=== PATIENT | female | born 1980 | race Caucasian/White ===

== ENCOUNTER → 2020-02-10 11:00 | Outpatient (BNVA) | payer OTHER, SELFPAY | PROVIDERS: Visit Provider Psychiatry & Neurology Psychiatry | DX: Z03.89 Encounter for observation for other suspected diseases and conditions ruled out (principal) | CPT/HCPCS: 80048; 80061; 83036; 85025 ==

== ENCOUNTER → 2020-03-28 10:00 | Outpatient (BNVA) | payer MEDICAID, SELFPAY | PROVIDERS: Visit Provider Counselor Professional | DX: F31.81 Bipolar II disorder (principal) | CPT/HCPCS: 90832 ==

== ENCOUNTER → 2020-04-25 09:05 | Outpatient (BNVA) | payer MEDICAID, SELFPAY | PROVIDERS: Visit Provider Counselor Professional | DX: F31.81 Bipolar II disorder (principal) | CPT/HCPCS: 90834 ==

== ENCOUNTER → 2020-05-30 09:05 | Outpatient (BNVA) | payer MEDICAID, SELFPAY | PROVIDERS: Visit Provider Counselor Professional | DX: F31.81 Bipolar II disorder (principal) | CPT/HCPCS: 90834 ==

== ENCOUNTER → 2020-07-04 09:05 | Outpatient (BNVA) | payer BC, SELFPAY | PROVIDERS: Visit Provider Counselor Professional | DX: F31.81 Bipolar II disorder (principal) | CPT/HCPCS: 90834 ==

== ENCOUNTER → 2020-08-03 07:38 | Outpatient (BNVA) | payer BC, SELFPAY | PROVIDERS: Visit Provider Psychiatry & Neurology Psychiatry | DX: F31.81 Bipolar II disorder (principal) | CPT/HCPCS: 99214 ==

== ENCOUNTER → 2020-08-17 08:06 | Outpatient (BNVA) | payer BC, SELFPAY | PROVIDERS: Visit Provider Counselor Professional | DX: F31.81 Bipolar II disorder (principal) | CPT/HCPCS: 90834 ==

== ENCOUNTER → 2020-08-29 10:30 | Outpatient (BNVA) | payer BC, SELFPAY | PROVIDERS: Visit Provider Psychiatry & Neurology Psychiatry | DX: F31.81 Bipolar II disorder (principal); Z79.899 Other long term (current) drug therapy; Z03.89 Encounter for observation for other suspected diseases and conditions ruled out | CPT/HCPCS: 80053; 80061; 80178; 83036; 84443; 85025 ==

== ENCOUNTER → 2020-09-14 08:52 | Outpatient (BNVA) | payer BC, SELFPAY | PROVIDERS: Visit Provider Counselor Professional | DX: F31.81 Bipolar II disorder (principal) | CPT/HCPCS: 90834 ==

== ENCOUNTER → 2020-10-19 08:57 | Outpatient (BNVA) | payer BC, SELFPAY | PROVIDERS: Visit Provider Counselor Professional | DX: F31.81 Bipolar II disorder (principal) | CPT/HCPCS: 90834 ==

== ENCOUNTER → 2020-10-26 08:16 | Outpatient (BNVA) | payer BC, SELFPAY | PROVIDERS: Visit Provider Psychiatry & Neurology Psychiatry | DX: F31.81 Bipolar II disorder (principal); Z79.899 Other long term (current) drug therapy | CPT/HCPCS: 80048; 80178; 99214 ==

== ENCOUNTER → 2020-11-16 09:03 | Outpatient (BNVA) | payer BC, SELFPAY | PROVIDERS: Visit Provider Counselor Professional | DX: F31.81 Bipolar II disorder (principal) | CPT/HCPCS: 90834 ==

== ENCOUNTER 2020-12-14 09:49 | Outpatient (CLI) | payer BC, SELFPAY ==
--- NOTE | 2020-12-14 10:18 | XR_ITS ---
WS: [id number] LEFT KNEE: 2 VIEW(S) TECHNIQUE: AP and lateral. HISTORY: LEFT KNEE PAIN COMPARISON: None available. No fracture or dislocation. No joint space narrowing or osteophytes. No joint effusion. Soft tissue calcifications are noted over the infrapatellar fat pad and proximal tibia. XR/XR knee LT 1-2V 20475 IMPRESSION: No significant osteoarthritic changes. No bone lesion.
== END 2020-12-14 09:50 | disposition home or self-care (01) ==
PROVIDERS: Visit Provider Nurse Practitioner Family
DX: M25.562 Pain in left knee (principal)
CPT/HCPCS: 73560

== ENCOUNTER → 2020-12-21 08:21 | Outpatient (BNVA) | payer BC, SELFPAY | PROVIDERS: Visit Provider Psychiatry & Neurology Psychiatry | DX: F31.81 Bipolar II disorder (principal) | CPT/HCPCS: 99214 ==

== ENCOUNTER → 2021-02-01 08:01 | Outpatient (BNVA) | payer BC, MEDICAID, SELFPAY | PROVIDERS: Visit Provider Psychiatry & Neurology Psychiatry | DX: F31.81 Bipolar II disorder (principal) | CPT/HCPCS: 99214 ==

== ENCOUNTER → 2021-04-12 08:57 | Outpatient (BNVA) | payer MEDICAID, SELFPAY | PROVIDERS: Visit Provider Psychiatry & Neurology Psychiatry | DX: F31.81 Bipolar II disorder (principal) | CPT/HCPCS: 99214 ==

== ENCOUNTER 2021-04-30 09:33 | Outpatient (CLI) | payer MEDICAID, SELFPAY ==
--- NOTE | 2021-04-30 09:30 | CT_ITS ---
WS: [id number] CT ABDOMEN AND PELVIS WITH CONTRAST HISTORY: UNSPECIFIED ABDOMINAL PAIN, RIGHT upper quadrant pain into back and LEFT groin. TECHNIQUE: Imaging performed of the abdomen and pelvis with IV contrast. Single phase imaging of the abdomen. Coronal and sagittal reformats are submitted. All CT scans at [facility] use at [address] one of these dose optimization techniques: automated exposure control; mA and/or kV adjustment per patient size (includes targeted exams where dose is matched to clinical indication); or iterative re construction. IV CONTRAST: Omnipaque 300; 95 mL IV. Oral contrast: Yes. DLP: 1082.03 mGycm COMPARISON: None available. Lower thorax: Lung bases are clear. Heart is normal size. Small hiatal hernia. Liver/biliary system: Normal size with no intrahepatic dilatation. Gallbladder: Status post cholecystectomy. Pancreas: Normal size pancreas and pancreatic duct. No adjacent inflammation. Spleen: Normal size spleen. No mass or infarct. Adrenal glands: Normal. Right kidney: Normal size kidney. Posterior mid renal cyst measures 2.0 x 2.9 cm. There is a small pa rapelvic cyst also. No obstruction. Left kidney: Normal. Aorta: Normal. Lymphadenopathy: None. Free fluid: None. GI tract: Within the central pelvis there are abnormal loops of GI tract. These abnormal loops of GI tract are inseparable from portion of the small bowel and also the sigmoid colon. I believe this is p robably the cecum which has crossed the midline. The appendix may be part of this soft tissue abnorma lity. The appendix is not identified as a separate structure. There is mild tethering and edema prese nt. There is increased soft tissue which extends to abut the small bowel loops. I favor there is at l east a partial obstruction and the adjacent loop of small bowel contains fecalization of material. Di stal sigmoid demonstrates some mild narrowing which may be a stricture associated with this process. Abdominal wall: Unremarkable abdominal wall. No hernia. Pelvis: Mildly prominent anteverted uterus. Bilateral ovarian follicles. No free fluid. Urinary bladd er is normal. Bones: L4 anterolisthesis by 5 mm. Bilateral L4 pars defects. At least mild foraminal stenosis at L4- 5. CT/CT abdomen pelvis w con* [id number] IMPRESSION: 1. Abnormal cluster and tethering of colon and small bowel in the mid pelvis. I believe the cecum has crossed the midline and is part of this conglomeration. There is increased soft tissue and mild fecal stasis suggesting at least a par tial long-term small bowel obstruction. The appendix is not identified as a sep arate structure and may be part of this process. There is involvement of small bowel, cecum and possibly the distal sigmoid. This could represent a Meckel's d iverticulum or neoplasm or chronic inflammation. Recommend surgical evaluation. 2. Simple RIGHT renal cyst. 3. No ascites or adenopathy.
[2021-04-30] MEDS: iohexol 300 mg/mL 50 mL Btl PO (10:00)
[2021-04-30] MEDS: iohexol 300 mg/mL 100 mL Btl IV (11:10)
== END 2021-04-30 09:34 | disposition home or self-care (01) ==
PROVIDERS: Visit Provider Nurse Practitioner Family
DX: R10.32 Left lower quadrant pain; R10.11 Right upper quadrant pain; N28.1 Cyst of kidney, acquired
CPT/HCPCS: 74177; Q9967

== ENCOUNTER 2021-05-01 09:48 | Emergency (ER) | payer MEDICAID, SELFPAY ==
[2021-05-01] VITALS (16 sets, daily range): BP systolic 97–161; BP diastolic 50–106; PULSE 53–78; RESP 16–18; TEMP 36.8; O2SAT 98–100; BMI 32.9
--- NOTE | 2021-05-01 09:54 | XR_ITS ---
WS: [id number] KUB, AP view, 05/01/2021 Clinical Data: bowel obstruction Comparison: None. Findings: No abnormal intraabdominal masses or calcifications are seen. There is no dilatated small bowel or ev idence of obstruction. There is air in the stomach, small bowel and colon. There are clips in the right upper quadrant from a cholecystectomy. There are phleboliths in the true pelvis. XR/XR KUB portable [id number] Impression: Negative KUB.
--- NOTE | 2021-05-01 10:24 | CT_ITS ---
WS: [id number] CT ABDOMEN PELVIS TECHNIQUE: Contrast-enhanced CT of the abdomen and pelvis with coronal and sagittal reformatted image s. CLINICAL INFORMATION: SBO? COMPARISON: CT 04/30/21 DLP: 1592.[address] scans at [facility] use at least one of these dose optimization techniques: automated e xposure control; mA and/or kV adjustment per patient size (includes targeted exams where dose is matc hed to clinical indication); or iterative reconstruction. FINDINGS: No evidence of high-grade small or large bowel obstruction. Previously described tethering of colon a nd small bowel in the mid pelvis with mobile cecum. Improved induration and inflammatory changes in t his area as compared to previous. No evidence of drainable fluid collection or abscess. Terminal ileu m has a more normal appearance today. Appendix is normal today. Appendix located in the midabdomen an teriorly. No evidence of acute appendicitis. Residual mild induration and enhancement involving the r ight ascending colon suspicious for infectious or inflammatory colitis. Diffuse fatty infiltration liver. Prior cholecystectomy. Lung bases are well aerated. Normal spleen. Normal GE junction. A few sigmoid diverticuli. No evidence of sigmoid diverticulitis. Adrenal glands are normal. Normal renal parenchymal enhancement. No hydronephrosis. Right renal cyst. Normal pancrea s. Lung bases are well aerated. Grade 1 anterolisthesis L4 on L5 with chronic bilateral pars defects. Retroverted uterus. Fluid or endometrial thickening in the endometrial canal. Right ovarian cyst mariano suring 1.[address]/CT abdomen pelvis w con* [id number] IMPRESSION: 1. Improved inflammation involving the cecum in the mid pelvis compared to pre vious. Normal ileocecal valve. Mobile cecum in the mid pelvis is unchanged. 2. Persistent thickening of the right colon with submucosal enhancement suspic ious for infectious or inflammatory colitis. 3. Normal appendix is visualized today. 4. No evidence of high-grade small or large bowel obstruction. Bowel distentio n has improved compared to yesterday. 5. Peripheral enhancing right ovarian cyst measuring 1.9 CM. Retroverted uteru s. 6. Sigmoid diverticulosis. No evidence of sigmoid diverticulitis. 7. Grade 1 anterolisthesis L4 on L5 with chronic bilateral pars defects.
--- NOTE | 2021-05-01 10:25 | W.ED.GENADLT ---
HPI - General Adult General: Chief complaint: Abdominal Pain Stated complaint: POSS BOWEL OBSTRUCTION:SENT BY POLO/ADMIT Time Seen by Provider: 05/01/21 09:54 History of Present Illness: HPI narrative: Patient is a 41-year-old female with no significant past medical history presents the emergency room for complaints of diffuse abdominal pain. Patient tells me 2 days ago he had she underwent a CT evaluation for rectal bleeding and was found to have small bowel obstruction. Patient says that she has been having symptoms for 1 month which acutely worsens since Thursday night. Patient says that this morning she has been able to pass 2 sets of stool. Patient reports some nausea denies vomiting, has not had any decreased p.o. intake. No prior abdominal surgeries. No prior history of cancer, weight loss or symptoms. Onset: chroncially 1 month, acutely 3 days ago Duration:3 days Location:home Severity: moderate Review of Systems Narrative: Constitutional: No fever, no chills. HEENT: No vision changes CV: No chest pain, no palpitations PULM: no cough, no dyspnea. GI: +abdominal pain, +N/-V/-D. : No dysuria MSKEL: No muscle pain SKIN: No new rashes, no lesions. NEURO: No headache, no focal weakness. HEME: No visible bruises PSYCH: Normal mood PFSH ED PFSH: Medical History (Updated 05/01/21 @ 12:07 by Tye Adrian MD) Bipolar 2 disorder Encounter for observation for other suspected diseases and conditions ruled out Other fdc (current) drug therapy Psychiatric care Social History (Updated 02/10/20 @ 10:02 by Yas Alegria LPN) Smoking and tobacco status: current every day smoker cigarettes and e-cigarettes E-Cigarette Details: vaporizer device E-cig/vape details: 5mg Juul last 3 days; been smoking for over 20 years Quit status (tobacco): considering quitting Second hand smoke exposure: Yes Current gender identity: Female Physical Exam Narrative: EXAM NARRATIVE: Head: Atraumatic Eyes: PERRL, conjunctiva without injection ENT: Mucous membrane moist NECK: Supple, ROM intact LUNGS: LCTAB, no crackles/rhonchi CV: RRR ABDOMEN: Soft, +mild focal TTP RUQ and LLQ. NO guarding rebound, guarding, rigidity. No CVA tenderness to percussion. Neg Reis/Neg McBurney's point tenderness, no suprabupic tenderness to palpation. EXTREMITY: Normal ROM SKIN: No rash or erythema NEURO: Awake and alert, no focal motor deficits PSYCH: Normal mood and affect Course Vital Signs: Vital signs: Vital Signs Temperature 98.2 F 05/01/21 10:19 Pulse Rate 67 05/01/21 12:57 Respiratory Rate 16 05/01/21 12:57 Blood Pressure 97/50 05/01/21 12:57 Pulse Oximetry 98 05/01/21 12:57 MDM - General Adult MDM Narrative: Medical decision making narrative: 41-year-old female presenting to the emergency room with complaints of generalized abdominal pain with concern for small bowel obstruction on recent CT scan from 2 days ago. On exam, patient has mild tenderness palpation right upper quadrant with and left lower quadrant. No guarding no rebound tenderness, no Reis sign. Lab work-up and CT abdomen pelvis showed colitis. WBC of 6.4 Patient is afebrile, not immunocompromised. Given GI cocktail with significant improvement in symptoms. Patient is able to tolerate p.o. Will not give antibiotics at this time. Patient is given follow-up with primary care provider for further evaluation of colitis and resolution of symptoms. Rx zofran PRN nausea/vomiting, maalox, and pepcid PRN upset stomach I have given patient a script for augmentin in case her colitis gets worse or if she has vomiting or fever. Disposition: Discharge. Patient counseled regarding diagnostic impression, treatment plan. Patient given ED strict return precautions to return for continuation, worsening, or development of new symptoms. Instructed to f/u w/ PCP regarding symptoms today. Patient verbalized understanding. Lab Data: Labs: Lab Results 05/01/21 05/01/21 05/01/21 10:40 10:40 10:40 WBC 6.4 10^3/uL 10^3/ uL (4.0-10.0) RBC 5.03 10^6/uL 10^6 /uL (4.1-5.3) Hgb 14.6 g/dL g/dL (11.5-15.3) Hct 46.0 % % (37.0-47.0) MCV 91.5 fl fl (81-99) MCH 29.0 pg pg (28.0-34.0) MCHC 31.7 g/dL g/dL (30.0-36.0) RDW 11.9 % L % (12.1-15.1) Plt Count 281 10^3/cmm 10^3 /cmm (130-400) MPV 10.9 fL H fL (7.4-10.4) Neut % (Auto) 67.6 % % Lymph % (Auto) 24.4 % % Sheridan % (Auto) 6.0 % % Eos % (Auto) 1.1 % % Baso % (Auto) 0.6 % % Neut # (Auto) 4.30 10^3/uL 10^3 /uL (1.8-7.7) Lymph # (Auto) 1.6 10^3/uL 10^3/ uL (0.8-4.8) Sheridan # (Auto) 0.4 10^3/uL 10^3/ uL (0.2-0.9) Eos # (Auto) 0.1 10^3/uL 10^3/ uL (0.0-0.8) Baso # (Auto) 0.0 10^3/uL 10^3/ uL (0.0-0.1) Nucleated RBC % (a uto) 0 % % Nucleated RBCs # 0.0 /100WBC /100W BC PT 12.40 SECONDS SEC ONDS (12.1-14.9) INR 0.90 (0.8-1.2) APTT 25.7 SECONDS SECO NDS (23.9-36.7) Sodium 136 mmol/L mmol/L (136-145) Potassium 3.7 mmol/L mmol/L (3.5-5.1) Chloride 98 mmol/L mmol/L (98-107) Carbon Dioxide 26 mmol/L mmol/L (22-29) Anion Gap 15.7 (5-19) BUN 7 mg/dL mg/dL (6-20) Creatinine 0.4 mg/dL L mg/dL (0.5-0.9) GFR Calculation 176.8 mL/min H mL /min (90-130) Glucose 84 mg/dL mg/dL (65-115) Calculated Osmolal ity 279 mOsm/kg L mOs m/kg (285-295) Calcium 9.3 mg/dL mg/dL (8.5-10.5) Total Bilirubin 0.4 mg/dL mg/dL (0.15-1.2) AST 13 U/L U/L (0-32) ALT 11 U/L U/L (0-33) Alkaline Phosphata se 61 IU/L IU/L (35-105) Total Protein 7.4 g/dL g/dL (6.6-8.7) Albumin 4.5 g/dL g/dL (3.5-5.2) Globulin 2.9 g/dL g/dL (1.3-4.6) Lipase 23 U/L U/L (13-60) Urine Color Urine Appearance Urine pH Ur Specific Gravit y Urine Protein Urine Glucose (UA) Urine Ketones Urine Blood Urine Nitrate Urine Bilirubin Urine Urobilinogen Ur Leukocyte Lisette ase 05/01/21 11:25 WBC RBC Hgb Hct MCV MCH MCHC RDW Plt Count MPV Neut % (Auto) Lymph % (Auto) Sheridan % (Auto) Eos % (Auto) Baso % (Auto) Neut # (Auto) Lymph # (Auto) Sheridan # (Auto) Eos # (Auto) Baso # (Auto) Nucleated RBC % (a uto) Nucleated RBCs # PT INR APTT Sodium Potassium Chloride Carbon Dioxide Anion Gap BUN Creatinine GFR Calculation Glucose Calculated Osmolal ity Calcium Total Bilirubin AST ALT Alkaline Phosphata se Total Protein Albumin Globulin Lipase Urine Color Straw (Yellow) Urine Appearance Clear (CLEAR) Urine pH 7 (5-7) Ur Specific Gravit y 1.005 (1.005-1.030) Urine Protein Neg (Negative) Urine Glucose (UA) Norm (Normal) Urine Ketones Negative (Negative) Urine Blood Neg (Negative) Urine Nitrate Negative (Negative) Urine Bilirubin Neg (Negative) Urine Urobilinogen Norm mg/dL mg/dL (Negative) Ur Leukocyte Lisette ase Negative (Negative) Imaging Data^: Other Imaging: Radiologist's impression: [address] [id number] Scan ReportSigned Patient: Damaris Vidal #: [id number]: 1980Acct#:[id number]/Sex: 41 / FADM Date: 05/01/21Loc: ERRoom/Bed:Attending Dr: Ordering Provider/Ordering MD: Tye Adrian MD Date of Service: 05/01/21 Procedure(s): CT abdomen pelvis w con* [id number] Accession Number(s): [id number] Report Number: [id number] WS: [id number] CT ABDOMEN PELVIS TECHNIQUE: Contrast-enhanced CT of the abdomen and pelvis with coronal and sagittal reformatted images. CLINICAL INFORMATION: SBO? COMPARISON: CT 04/30/21 DLP: 1592.[address] scans at [facility] use at least one of these dose optimization techniques: automated exposure control; mA and/or kV adjustment per patient size (includes targeted exams where dose is matched to clinical indication); or iterative reconstruction. FINDINGS: No evidence of high-grade small or large bowel obstruction. Previously described tethering of colon and small bowel in the mid pelvis with mobile cecum. Improved induration and inflammatory changes in this area as compared to previous. No evidence of drainable fluid collection or abscess. Terminal ileum has a more normal appearance today. Appendix is normal today. Appendix located in the midabdomen anteriorly. No evidence of acute appendicitis. Residual mild induration and enhancement involving the right ascending colon suspicious for infectious or inflammatory colitis. Diffuse fatty infiltration liver. Prior cholecystectomy. Lung bases are well aerated. Normal spleen. Normal GE junction. A few sigmoid diverticuli. No evidence of sigmoid diverticulitis. Adrenal glands are normal. Normal renal parenchymal enhancement. No hydronephrosis. Right renal cyst. Normal pancreas. Lung bases are well aerated. Grade 1 anterolisthesis L4 on L5 with chronic bilateral pars defects. Retroverted uterus. Fluid or endometrial thickening in the endometrial canal. Right ovarian cyst measuring 1.[address]/CT abdomen pelvis w con* [id number] IMPRESSION: 1. Improved inflammation involving the cecum in the mid pelvis compared to previous. Normal ileocecal valve. Mobile cecum in the mid pelvis is unchanged. 2. Persistent thickening of the right colon with submucosal enhancement suspicious for infectious or inflammatory colitis. 3. Normal appendix is visualized today. 4. No evidence of high-grade small or large bowel obstruction. Bowel distention has improved compared to yesterday. 5. Peripheral enhancing right ovarian cyst measuring 1.9 CM. Retroverted uterus. 6. Sigmoid diverticulosis. No evidence of sigmoid diverticulitis. 7. Grade 1 anterolisthesis L4 on L5 with chronic bilateral pars defects. Dictated By:García Beck MDSigned By:García Beck MDSigned Date/Time:05/01/21 1146DD/ 1130 Discharge Plan Discharge Patient Disposition: Home Clinical Impression: Colitis Condition: Stable Prescriptions: New Augmentin 875-125 mg tablet 1 tab PO BID 7 Days Qty: 14 RF: 0 Zofran 4 mg tablet 4 mg PO TID PRN (Reason: nausea and vomiting) 4 Days Qty: 12 RF: 0 Pepcid 20 mg tablet 20 mg PO BID PRN (Reason: pain) 42 Days Qty: 84 RF: 0 Maalox Advanced 1,000-60 mg tablet,chewable 1 tab PO TID PRN (Reason: dyspepsia) 10 Days Qty: 30 RF: 0 No Action ondansetron HCl 4 mg tablet 4 mg PO Q6H PRN (Reason: Nausea And Vomiting) RF: 0 omeprazole 40 mg capsule,delayed release(DR/EC) 40 mg PO BEDTIME RF: 0 lithium carbonate 450 mg tablet extended release 450 mg PO BEDTIME RF: 0 lamotrigine 100 mg tablet 150 mg PO BEDTIME RF: 0 Discharge Orders: Discharge ED (Routine); Ordered 05/01/21 Ordered By: Tye Adrian Discharge Diet: Advance as tolerated Discharge Activity: Resume usual activity Patient Instructions: Colitis (ED) Activity Restrictions/Additional Instructions: Please follow-up with your primary care provider in the next day or so. Come back to the emergency room having significant nausea vomiting, abdominal pain, any new concerning complaints. Stand Alone Forms: Work/School Release Coding Level of Care Code ED Pipe Stress Engineer for Viral Palmer
[2021-05-01 10:46] LABS: Basophils % 0.6 %; Eosinophils # 0.1 10^3/uL (0.0-0.8); Eosinophils % 1.1 %; Hemoglobin 14.6 g/dL (11.5-15.3); Lymphocytes # 1.6 10^3/uL (0.8-4.8); Lymphocytes % 24.4 %; Mean Corpuscular HGB Conc 31.7 g/dL (30.0-36.0); Mean Corpuscular Volume 91.5 fl (81-99); Mean Platelet Volume 10.9 fL (7.4-10.4); Monocytes # 0.4 10^3/uL (0.2-0.9); Neutrophils % 67.6 %; Nucleated Red Blood Cells % 0 %; Platelet Count 281 10^3/cmm (130-400); Red Blood Count 5.03 10^6/uL (4.1-5.3); Red Cell Distribution Width 11.9 % (12.1-15.1); White Blood Count 6.4 10^3/uL (4.0-10.0)
[2021-05-01] MEDS: iohexol 300 mg/mL 100 mL Btl IV (10:54)
[2021-05-01 11:01] LABS: Slide Review Slide Review Perform
[2021-05-01 11:02] LABS: Alanine Aminotransferase 11 U/L (0-33); Albumin Level 4.5 g/dL (3.5-5.2); Alkaline Phosphatase 61 IU/L (35-105); Blood Urea Nitrogen 7 mg/dL (6-20); Calcium 9.3 mg/dL (8.5-10.5); Carbon Dioxide 26 mmol/L (22-29); Chloride 98 mmol/L (98-107); Globulin 2.9 g/dL (1.3-4.6); Glomerular Filtration Rate 176.8 mL/min (90-130); Glucose 84 mg/dL (65-115); Lipase 23 U/L (13-60); Osmolality Calculated 279 mOsm/kg (285-295); Sodium 136 mmol/L (136-145); Total Bilirubin 0.4 mg/dL (0.15-1.2); Total Protein 7.4 g/dL (6.6-8.7)
[2021-05-01 11:03] LABS: Anion Gap 15.7 (5-19); Potassium 3.7 mmol/L (3.5-5.1)
[2021-05-01 11:04] LABS: Aspartate Amino Transferase 13 U/L (0-32)
[2021-05-01 11:15] LABS: Partial Thromboplastin Time 25.7 SECONDS (23.9-36.7)
[2021-05-01 11:31] LABS: Add Urine Microscopic? NO; Charge for UA Resulting for Rev
[2021-05-01 11:36] LABS: Specific Gravity, Urine 1.005 (1.005-1.030); Urine Appearance Clear (CLEAR); Urine Color Straw (Yellow); pH Urine 7 (5-7)
[2021-05-01 11:37] LABS: Bilirubin Urine Neg (Negative); Blood Urine Neg (Negative); Glucose Urine UA Norm (Normal); Ketones Urine Negative (Negative); Leukocyte Esterase Urine Negative (Negative); Nitrate Urine Negative (Negative); Protein Urine Neg (Negative); Urobilinogen Urine Norm (Negative)
[2021-05-01] MEDS: morphine 4 mg/mL SDV 1 mL 2 MG IVP (12:22)
[2021-05-01] MEDS: lidocaine 2% viscous 15 ML, aluminum-mag hydrox-simethicon 30 ML, sucralfate oral liq 1 GM PO (12:26)
--- NOTE | 2021-05-01 13:16 | PC.NURSE ---
Provided pt with ice chips and then water for a PO challenge.
== END 2021-05-01 14:17 | disposition home or self-care (01) ==
PROVIDERS: Absent Provider Surgery; Emergency Provider Emergency Medicine
DX: K52.9 Noninfective gastroenteritis and colitis, unspecified (principal); F17.210 Nicotine dependence, cigarettes, uncomplicated; F17.290 Nicotine dependence, other tobacco product, uncomplicated
CPT/HCPCS: 74018; 74177; 80053; 81003; 83690; 85025; 85610; 85730; 96374; 99284; J2270; Q9967

== ENCOUNTER 2021-08-07 09:20 | Outpatient (CLI) | payer MEDICAID, SELFPAY ==
--- NOTE | 2021-08-07 09:34 | US_ITS ---
WS: [id number] RIGHT UPPER QUADRANT ULTRASOUND HISTORY: RUQ ABDOMINAL PAIN COMPARISON: None available. Liver: 16.1 cm in length. Normal size liver. No bile duct dilatation or mass. Portal Vein: Normal hepatopetal flow with monophasic waveform. Gallbladder: Prior cholecystectomy. CBD: 0.8 cm Pancreas: Normal size and echogenicity. Right kidney: 12.7 cm in length. Normal size kidney. Normal echogenicity. No hydronephrosis. Lobulate d cyst in the upper to mid kidney measures 3.7 x 3.1 x 4.1 cm. As seen on a prior CT this is a combin ation of a cortical cyst and pelvic cyst. Aorta and IVC: Unremarkable abdominal aorta and IVC. No ascites. US/US abdomen limited [id number] IMPRESSION: 1. Prior cholecystectomy. 2. RIGHT renal cysts as described above. Similar to the prior CT from 1 3. Common bile duct is top normal size and appropriate for post cholecystectom y.
--- NOTE | 2021-08-07 09:34 | FL_ITS ---
WS: [id number] SMALL BOWEL FOLLOW-THROUGH HISTORY: PARTIAL intestinal OBSTRUCTION COMPARISON: CT 05/28/2021 FLUOROSCOPY TIME: 1.0 minutes. TECHNIQUE: Education Adviser film performed of the abdomen. Parental oral contrast is provided to evaluate the sm all bowel. Sequential imaging is performed. Fluoroscopy of the terminal ileum is then obtained. It took approximately 1 hour for barium to traverse the small bowel. No dilated loops or obstruction identified. No displacement of the small bowel loops. Terminal ileum was normal. Contrast was noted f lowing through the terminal ileum. The appendix did not fill. Additional fluoroscopy of the terminal ileum was performed but the images were not saved permanently due to a technical error. I was present during the fluoroscopy and the loops of small bowel in the [facility] lower quadrant were mobile with no wall thickening. Prior cholecystectomy. FL/FL small bowel series* [id number] IMPRESSION: 1. No small bowel obstruction. 2. No strictures. 3. Negative terminal ileum.
== END 2021-08-07 09:21 | disposition home or self-care (01) ==
LOC: RAD 09:29
PROVIDERS: PCP Nurse Practitioner Family; Visit Provider Nurse Practitioner
DX: R10.11 Right upper quadrant pain (principal); Z90.49 Acquired absence of other specified parts of digestive tract; Q61.02 Congenital multiple renal cysts
CPT/HCPCS: 74018; 74250; 76705

== ENCOUNTER → 2021-08-13 14:39 | Outpatient (BNVA) | payer MEDICAID, SELFPAY | PROVIDERS: PCP Nurse Practitioner Family; Visit Provider Psychiatry & Neurology Psychiatry | DX: F31.81 Bipolar II disorder (principal) | CPT/HCPCS: 99214 ==

== ENCOUNTER 2022-02-12 11:48 | Emergency (ER) | payer MEDICAID, SELFPAY ==
[2022-02-12 12:05] VITALS: BP 132/91; PULSE 82; RESP 18; TEMP 36.6; O2SAT 98; BMI 32.8
[2022-02-12 12:13] VITALS: BP 132/91; PULSE 82; RESP 18; TEMP 36.6; O2SAT 98
--- NOTE | 2022-02-12 12:21 | W.ED.BACK ---
HPI - Back Pain/Injury General: Chief Complaint: Back Pain/Injury Stated Complaint: Back Pain Time Seen by Provider: 02/12/22 12:20 Source: patient Mode of arrival: ambulatory Limitations: no limitations History of Present Illness: Patient is a 42-year-old female presents to ED today with a complaint of lower back and lower right-sided back pain over the past 2 days. Patient tells me she was dancing 3 days ago and felt like her right hip popped a few times. She has not had any pain in the right hip since but the day afterwards she began having some pain/spasm like sensations to her lower back and right lower back. No radicular symptoms. She does not complain of saddle anesthesia like sensations. No urinary/bowel retention/incontinence. MD elicited complaint: back pain Onset (ago): day(s) (2d ago) Timing: constant Severity: severe Similar Symptoms Previously: No Location: lumbar spine and right lower back Radiation: none Exacerbating factors: movement, walking and lifting Relieving factors: supine Associated symptoms: Reports no associated symptoms; Deny abdominal pain, chills, dysuria, fatigue, fever(s), hematuria, nausea, urinary urgency or vomiting Work related injury: No Review of Systems Const: Denies: fever(s), chills, body aches, fatigue or malaise Card: Denies: chest pain Resp: Denies: dyspnea GI: Denies: abdominal pain, nausea, vomiting or diarrhea : Denies: flank pain, difficulty voiding, dysuria, urinary frequency, urinary urgency, hematuria or pelvic pain Musc: Reports: back pain; Denies: neck pain, extremity pain, extremity swelling, joint pain or joint swelling Skin/Breast: Denies: rash Neuro: Denies: headache(s), numbness in extremities, weakness in extremities or sensory changes PFSH ED PFSH: Medical History Bipolar 2 disorder Encounter for observation for other suspected diseases and conditions ruled out Other intermodal dispatcher (current) drug therapy Psychiatric care Social History Smoking and tobacco status: former smoker Quit status (tobacco): has quit using tobacco Second hand smoke exposure: Yes Current gender identity: Female Female Reproductive History: Date of last menstrual period: 01/27/22 Physical Exam Const: COMMON NORMALS: no acute distress, patient oriented x3, no limitations, alert and well nourished GENERAL APPEARANCE: cooperative : COMMON NORMALS: Yes no CVA tenderness BLADDER/KIDNEY EXAM: Yes no CVA tenderness Back/Pelvis: COMMON NORMALS: no CVA tenderness THORACIC SPINE/UPPER BACK: Yes normal to inspection, Yes thoracic ROM normal, No pain with ROM, No thoracic spinal tenderness, No paraspinal muscle tenderness and No paraspinal muscle spasm LUMBAR SPINE/LOWER BACK: Yes normal to inspection, No lumbar ROM normal, Yes pain with ROM, Yes lumbar spinal tenderness, Yes paraspinal muscle tenderness, Yes paraspinal muscle spasm, No mass present and Yes straight leg raise negative bilaterally PELVIS: Yes buttocks normal SACRUM: no tenderness COCCYX: no tenderness BACK IMAGE (FEMALE): 1. palpable muscle spasm Extremity: COMMON NORMALS: normal to inspection and full ROM GENERAL: Yes normal exam except as noted Neuro: COMMON NORMALS: patient oriented x3, moves all extremities, no focal motor deficits and no sensory deficits noted SENSORIUM/ORIENTATION: Yes alert MOTOR EXAM: 5/5 motor strength present throughout DEEP TENDON REFLEXES: Right patellar reflex intensity grade: 2+ and Left patellar reflex intensity grade: 2+ Course Vital Signs: Vital signs: Vital Signs Temperature 97.9 F 02/12/22 12:13 Pulse Rate 82 02/12/22 12:13 Respiratory Rate 18 02/12/22 12:13 Blood Pressure 132/91 02/12/22 12:13 Pulse Oximetry 98 02/12/22 12:13 Oxygen Delivery Me thod 02/12/22 12:13 MDM - Back Pain/Injury Medical Decision Making Patient reports back pain has slightly eased with IM medications. Recommend she follow-up with primary care in 1 to 2 weeks if pain does not continue to improve or resolve. Return to ED precautions given. Discharge Plan Discharge Patient Disposition: Home Clinical Impression: Strain of lumbar region Qualifiers: Encounter type: initial encounter Qualified Code(s): S39.012A - Strain of muscle, fascia and tendon of lower back, initial encounter Condition: Stable Prescriptions: New methocarbamol 500 mg tablet 1,000 mg PO Q8H Qty: 30 0RF ibuprofen 800 mg tablet 800 mg PO Q8H PRN (Reason: pain) Qty: 20 0RF tramadol 50 mg tablet 50 mg PO Q6H PRN (Reason: pain) Qty: 10 0RF methylprednisolone [Medrol (Yg)] 4 mg tablets,dose pack See Rx Instructions .ROUTE .COMPLEX Qty: 21 0RF Rx Instructions: orally per package directions Discharge Orders: Discharge ED (Routine); Ordered 02/12/22 Ordered By: Arely Brooks Referrals: Arabella Lizarraga, FERMENTER CHAMPAGNE [Primary Care Provider] - Coding Level of Care Code ED Triple Drum Operator for Chg Fwd Exam Detailed
[2022-02-12] MEDS: orphenadrine 30 mg/mL Inj 2 mL 60 MG IM (12:53)
[2022-02-12] MEDS: dexamethasone 10 mg/mL INJ 8 MG IM (12:53)
[2022-02-12] MEDS: ketorolac 60 mg/2 mL INJ IM (12:53)
== END 2022-02-12 13:53 | disposition home or self-care (01) ==
PROVIDERS: Emergency Provider Physician Assistant; PCP Nurse Practitioner Family
DX: S39.012A Strain of muscle, fascia and tendon of lower back, initial encounter (principal); Z87.891 Personal history of nicotine dependence; X58.XXXA Exposure to other specified factors, initial encounter; Y93.41 Activity, dancing
CPT/HCPCS: 96372; 99284; J1100; J1885; J2360